=== PATIENT | male | born 1980 | race Asian ===

== ENCOUNTER 2017-12-27 09:12 | Emergency (ER) | payer OTHER, MEDICAID ==
[~2017-12-27] VITALS: Ht 170.2 cm; Wt 79.4 kg
[2017-12-27 09:12] VITALS: BP_SYST 123
[~2017-12-27 09:12] MED LIST: ADVAIR; ASPIRIN; BEN50 PO; BENADRYL; FLOVENT; HYDR-1189 PO; HYDROCORTISONE; LORATIDINE; PRED10TA PO; PREDNISONE; PROAIR; PULMOCORT; THEOPHYLLINE; [UNRECOGNIZED DRUG - OTHER]
[2017-12-27 10:30] VITALS: BP_SYST 123
== END 2017-12-27 10:30 | disposition home or self-care (01) ==
LOC: SED 09:12
DX: H60.501 Unspecified acute noninfective otitis externa, right ear (principal); R03.0 Elevated blood-pressure reading, without diagnosis of hypertension; J45.909 Unspecified asthma, uncomplicated; K21.9 Gastro-esophageal reflux disease without esophagitis; Z88.0 Allergy status to penicillin; Z88.1 Allergy status to other antibiotic agents; Z91.012 Allergy to eggs
CPT/HCPCS: 99283

== ENCOUNTER 2018-11-25 09:29 | Emergency (ER) | payer OTHER, MEDICAID ==
[~2018-11-25] VITALS: Ht 170.2 cm; Wt 77.1 kg
[2018-11-25 09:29] VITALS: BP_SYST 123
[2018-11-25] MEDS ORDERED: DIPHENHYDRAMINE INJ 50 MG/ML VIAL ONE (09:42)
[2018-11-25] MEDS ORDERED: DEXAMETHASONE SOD PHOSPHATE 10 MG/ML VIAL ONE (09:42)
[2018-11-25] MEDS ORDERED: DEXAMETHASONE SOD PHOSPHATE 10 MG/ML VIAL IVP ONE (09:45)
[2018-11-25] MEDS ORDERED: NACL 0.9% 1,000 ML IV ONE (09:45)
[2018-11-25] MEDS ORDERED: DIPHENHYDRAMINE INJ 50 MG/ML VIAL IVP ONE (09:45)
[2018-11-25 09:57] LABS: BASOPHILS % (AUTO) 0.3 % (0.0-2.0); EOSINOPHILS # (AUTO) 0.3 K/uL (0.0-0.4); EOSINOPHILS % (AUTO) 3.5 % (0.0-4.0); HEMOGLOBIN 15.5 g/dL (14.0-18.0); LYMPHOCYTES # (AUTO) 0.7 K/uL (1.0-5.5); LYMPHOCYTES % (AUTO) 7.5 % (20.5-51.5); MEAN CORPUSCULAR HEMOGLOBIN 27 pg (27-31); MEAN CORPUSCULAR HGB CONC 32 % (32-36); MEAN CORPUSCULAR VOLUME 82 fL (79.0-98.0); MONOCYTES # (AUTO) 0.4 K/uL (0.0-1.0); MONOCYTES % (AUTO) 4.5 % (1.7-9.3); NEUTROPHILS # (AUTO) 7.7 K/uL (1.8-7.7); NEUTROPHILS % (AUTO) 84.2 % (40.0-70.0); PLATELET COUNT (AUTO) 363 K/uL (130-430); RED BLOOD CELL COUNT(AUTO) 5.84 MIL/uL (4.2-6.2); RED CELL DISTRIBUTION WIDTH 13.4 % (9.0-15.0); WHITE BLOOD COUNT (AUTO) 9.1 K/uL (4.8-10.8)
[2018-11-25 10:01] LABS: CALCIUM 8.6 mg/dL (8.4-11.0); CREATININE 0.98 mg/dL (0.55-1.30); POTASSIUM 3.6 mmol/L (3.5-5.1)
[2018-11-25 10:06] LABS: TOTAL BILIRUBIN 0.4 mg/dL (0.0-1.0)
[2018-11-25 11:05] VITALS: BP_SYST 123
== END 2018-11-25 11:05 | disposition home or self-care (01) ==
LOC: SED 09:29
DX: T78.40XA Allergy, unspecified, initial encounter (principal); J45.909 Unspecified asthma, uncomplicated; K21.9 Gastro-esophageal reflux disease without esophagitis; Z88.0 Allergy status to penicillin; Z88.1 Allergy status to other antibiotic agents; Z91.012 Allergy to eggs; Z79.82 Long term (current) use of aspirin; Z79.899 Other long term (current) drug therapy; X58.XXXA Exposure to other specified factors, initial encounter
CPT/HCPCS: 36415; 80053; 85025; 96374; 96375; 99283; J1100; J1200; J7030